=== PATIENT | female | born 1970 | race Caucasian/White ===

== ENCOUNTER → 2021-04-05 15:26 | Outpatient (CLI) | payer OTHER, SELFPAY ==
--- NOTE | ~2021-04-05 | MM_ITS ---
EXAMINATION: MM screening [place] BI w evie HISTORY: Screening mammogram TECHNIQUE: Craniocaudal and mediolateral oblique 3-D tomosynthesis images were obtained and synthetic 2-D images were generated. CAD analysis was submitted and interpreted. COMPARISON: No prior mammogram is available for comparison at this institution. BREAST PARENCHYMAL COMPOSITION: The breasts are almost entirely fatty. FINDINGS: RIGHT BREAST: There is no evidence of suspicious mass, calcification, or architectural distortion to suggest malignancy. LEFT BREAST: A mass is present in the anterior third of the upper outer quadrant breast 4.5 cm from t he nipple. IMPRESSION: 1. Left breast mass which may represent the patient's baseline however no comparison is currently esha ilable. 2. Comparison with prior mammograms is necessary. BI-RADS Category 0: Incomplete: Needs comparison with prior mammograms. Reviewed, dictated and finalized at location A. IMPRESSION: 1. Left breast mass which may represent the patient's baseline however no isaac rison is currently available. 2. Comparison with prior mammograms is necessary. BI-RADS Category 0: Incomplete: Needs comparison with prior mammograms.
== END ==
PROVIDERS: PCP Emergency Medicine; Visit Provider Emergency Medicine
DX: Z12.31 Encounter for screening mammogram for malignant neoplasm of breast (principal); R92.8 Other abnormal and inconclusive findings on diagnostic imaging of breast
CPT/HCPCS: 77063; 77067

== ENCOUNTER 2021-10-05 00:07 | Day surgery (SDC) | payer OTHER, SELFPAY ==
[2021-09-23 15:18] VITALS: BMI 24.2
[2021-10-05 07:48] VITALS: BP 143/92; PULSE 84; RESP 18; TEMP 36.5; O2SAT 100
[2021-10-05] MEDS: LACTATED RINGERS 1,000 ML 150 ML IV CONT (08:02)
--- NOTE | 2021-10-05 08:21 | WPDANESEPPF ---
Anes - Initial Pre Proc Eval Procedure: Operation Date: 10/05/21 09:00 Proposed Procedures p Esophagogastroduodenoscopy & Screening Colonoscopy - Orlando Walker MD Date/Time: 10/05/21 08:21 Surgeon: Orlando Walker MD Pre Op Diagnosis: abdominal pain, gastritis, neoplasm screening Patient Data Age: 51 Gender: F Height: 1.68 m Weight: 68.2 kg Last Vital Signs Temp 97.7 F 10/05/21 07:48 Pulse 84 10/05/21 07:48 Resp 18 10/05/21 07:48 BP 143/92 H 10/05/21 07:48 Pulse Ox 100 10/05/21 07:48 Allergies Allergy/AdvReac Type Severity Reaction Status Date / Time corn Allergy Gastrointestinal Verified 10/05/21 07:51 Upset egg Allergy Gastrointestinal Verified 10/05/21 07:51 Upset wheat Allergy Gastrointestinal Verified 10/05/21 07:51 Upset Home Medications Medication Instructions Recorded Confirmed Type ascorbic acid (vitamin C) 500 mg PO DAILY 09/23/21 09/23/21 History cholecalciferol (vitamin D3) 50 mcg PO DAILY 09/23/21 09/23/21 History [Vitamin D3] ezetimibe 10 mg PO DAILY 09/23/21 09/23/21 History levothyroxine [Synthroid] 88 mcg PO DAILY 09/23/21 09/23/21 History omeprazole 20 mg PO DAILY 09/23/21 09/23/21 History Patient hx anesthesia problems: none Family hx anesthesia problems: none Results Review: All pre-operative results and documents have been reviewed as part of the pre-operative evaluation. [facility]LY [facility] Past Medical History Medical History (Updated 10/05/21 @ 08:20 by Richi Drake MD) H/O: CVA (cerebrovascular accident) Hyperlipidemia Social History Social History Smoking status: Never smoker Alcohol intake: current Drinks per week: 2 Substance use: never Substance use type: does not use Living arrangements: with family Spiritual care concerns: No Anes - Eval Final PreProcedure Day of Procedure 10/05/21 08:21 Patient weight: normal Heart: regular rate and rhythm Lungs: clear to auscultation Airway: Mallampati scale class II Neurological: alert and oriented Last oral intake: >/= 8 hours ASA classification: III Emergent: no Anesthetic plan: proceed Anesthesia type and monitoring: general GIVS and standard monitoring Results Review: All pre-operative results and documents have been reviewed as part of the pre-operative evaluation. Informed Consent: The patient's anesthetic plan and its attendant risks and benefits were discussed with the patient/family/POA. Questions were solicited and answers provided to the satisfaction of the patient/family/POA.
--- NOTE | 2021-10-05 08:47 | PM.HPGS ---
History of Present Illness History of Present Illness Consent: Risks, benefits, and alternatives have been discussed and questions answered. Patient agrees to proceed with procedure. Chief complaint: abdominal pain, gastritis, neoplasm screening Narrative: Sita Borjas is a 51 year old female with abdominal pain and gerd- better with omeprazole, blood work with mild abnormal parietal cell ab and also allergies to certain meals. She is post cholecystectomy and history of diarrhea but does not have to take any medications. Last colonoscopy 2015. Review of Systems Constitutional: Constitutional: Denies headache(s) and Denies weakness Eyes: Eyes: Denies blurry vision ENT: Reports Normal hearing present, Denies headache(s) and Denies neck pain Cardiovascular: Cardiovascular: Denies chest pain and Denies dyspnea Respiratory: Respiratory: Denies dyspnea Gastrointestinal: Gastrointestinal: Reports no additional gastrointestinal complaints Genitourinary: Genitourinary: Denies dysuria Musculoskeletal: Musculoskeletal: Denies neck pain Integumentary/Breasts: Skin/Breast: Denies dry skin Neurologic: Reports Normal hearing present, Denies headache(s) and Denies weakness Psychiatric: Psychiatric: Denies anxiety Endocrine: Endocrine: Denies change in body appearance Hematologic/Lymphatic: Hematologic/Lymphatic: Denies easy bleeding Allergic/Immunologic: Allergic/Immunologic: Denies urticaria PMFSH Past Medical History Medical History (Updated 10/05/21 @ 08:49 by Orlando Walker MD) Abdominal pain Colon cancer screening GERD (gastroesophageal reflux disease) Hyperlipidemia Social History Social History Smoking status: Never smoker Alcohol intake: current Drinks per week: 2 Substance use: never Substance use type: does not use Living arrangements: with family Spiritual care concerns: No Meds Home Medications and Allergies Home Medications Medication Instructions Recorded Confirmed Type ascorbic acid (vitamin C) 500 mg PO DAILY 09/23/21 09/23/21 History cholecalciferol (vitamin D3) 50 mcg PO DAILY 09/23/21 09/23/21 History [Vitamin D3] ezetimibe 10 mg PO DAILY 09/23/21 09/23/21 History levothyroxine [Synthroid] 88 mcg PO DAILY 09/23/21 09/23/21 History omeprazole 20 mg PO DAILY 09/23/21 09/23/21 History Allergies Allergy/AdvReac Type Severity Reaction Status Date / Time corn Allergy Gastrointestinal Verified 10/05/21 07:51 Upset egg Allergy Gastrointestinal Verified 10/05/21 07:51 Upset wheat Allergy Gastrointestinal Verified 10/05/21 07:51 Upset Vital Signs Vital Signs - 24 hr 10/05/21 07:48 Temperature 97.7 F Pulse Rate 84 Respiratory Rate 18 Blood Pressure 143/92 H Pulse Oximetry 100 Exam Const: General: comfortable and no acute distress HENMT: General nose exam: Normal nares present Eyes: General: appearance normal, both eyes and all related structures Neck: Neck: no JVD Resp: Auscultation: clear to auscultation bilaterally Cardio: Rate: regular rate Rhythm: regular rhythm GI: Inspection: non-distended GI Palp: Yes Soft to palpation Skin: General skin exam: normal color Neuro: General: gait normal Speech: normal speech Extrem: General: normal to inspection Psych: Mental Status: mental status grossly normal Assessment and Plan Assessment and plan (1) Abdominal pain: Code(s): R10.9 - Unspecified abdominal pain Status: Acute Assessment and Plan: egd with bx (check if atrophic gastritis given abnormal parietal cell ab), also check for celiac disease (2) GERD (gastroesophageal reflux disease): Code(s): K21.9 - Gastro-esophageal reflux disease without esophagitis Status: Acute Assessment and Plan: better with PPI (3) Colon cancer screening: Code(s): Z12.11 - Encounter for screening for malignant neoplasm of colon Status: Acute Assessment and Plan:
[2021-10-05 09:29] VITALS: BP 129/84; PULSE 79; RESP 22; O2SAT 100
[2021-10-05 09:39] VITALS: BP 123/80; PULSE 81; RESP 25; O2SAT 100
--- NOTE | 2021-10-05 09:42 | SUR.OPER ---
EGD start 857 End 903, Colon start 909 end 922
[2021-10-05 09:49] VITALS: BP 143/100; PULSE 66; RESP 22; O2SAT 100
== END 2021-10-05 10:42 | disposition home or self-care (01) ==
PROVIDERS: PCP Emergency Medicine; Visit Provider Internal Medicine Gastroenterology
PROC: 0DJ08ZZ Inspection of Upper Intestinal Tract, Via Natural or Artificial Opening Endoscopic (ICD-10-PCS; CPT 43235; principal; 2021-10-05 09:00)
DX: Z12.11 Encounter for screening for malignant neoplasm of colon (principal); D12.3 Benign neoplasm of transverse colon; K57.30 Diverticulosis of large intestine without perforation or abscess without bleeding; K64.8 Other hemorrhoids; K52.9 Noninfective gastroenteritis and colitis, unspecified; K29.50 Unspecified chronic gastritis without bleeding; K31.7 Polyp of stomach and duodenum; K21.9 Gastro-esophageal reflux disease without esophagitis; E78.5 Hyperlipidemia, unspecified; Z86.73 Personal history of transient ischemic attack (TIA), and cerebral infarction without residual deficits
CPT/HCPCS: 43239; 45385; 45380; 88305; 88342; J1200; J2250; J2704; J7120

== ENCOUNTER 2022-02-14 15:15 | Emergency (ER) | payer OTHER, SELFPAY ==
--- NOTE | ~2022-02-14 | XR_ITS ---
XR finger 1st RT min 2V 02/14/2022 15:55 INDICATION: Right first finger pain PROCEDURE: 3 views right first finger COMPARISON: No prior studies for comparison. FINDINGS: Fracture, dislocation or subluxation is not identified. The soft tissues appear within norm al limits. No foreign bodies are identified. IMPRESSION: 1: NO ACUTE BONE OR JOINT ABNORMALITY IDENTIFIED. Reviewed, dictated and finalized at location A.
--- NOTE | ~2022-02-14 | XR_ITS ---
EXAM: XR foot LT min 3V DATE: 02/14/2022 15:55 HISTORY: falling brick on foot . COMPARISON: None available. FINDINGS: Normal mineralization. No fracture or dislocation. No lytic or blastic lesion. Achilles an d plantar enthesopathy. Mild degenerative change at the first MTP. No erosion or periosteal change. F orefoot soft tissue swelling. IMPRESSION: No acute osseous finding in the left foot. Reviewed, dictated and finalized at location K.
--- NOTE | ~2022-02-14 | US_ITS ---
EXAMINATION: US venous doppler [facility] DATE: 02/14/2022 16:21 INDICATION: Left lower limb swelling TECHNIQUE: Singh scale images without and with compression and Doppler images of the left lower extrem ity veins were obtained. COMPARISON: None FINDINGS: The left common femoral vein, profunda femoral vein, femoral vein, popliteal vein, peroneal trunk, posterior tibial veins, and greater saphenous vein are patent. No focal sonographic abnormali ty is seen in the area of swelling. IMPRESSION: 1. Patent left lower extremity veins. No evidence of deep venous thrombosis. Reviewed, dictated and finalized at location B.
[2022-02-14 15:27] VITALS: BP 142/104; PULSE 85; RESP 20; TEMP 36.9; O2SAT 98
--- NOTE | 2022-02-14 16:37 | ED.LOWEXIN ---
HPI - Extremity Injury (Lower) General Chief Complaint: Extremity Injury, Lower Stated Complaint: left foot pain - i dropped something on my foot Time Seen by Provider: 02/14/22 15:38 History of Present Illness HPI Narrative: 51-year-old female presenting with pain in her left foot after she accidentally dropped something on it, denies any numbness or tingling or weakness, she also noticed her right thumb being stuck in the same position which has happened before with overuse. She also thinks that she has increased welling in her left foot and she has had clots in the past so wanted to make sure there were no clots today. Related Data Home Medications Medication Instructions Recorded Confirmed ascorbic acid (vitamin C) 500 mg 500 mg PO DAILY 09/23/21 09/23/21 tablet cholecalciferol (vitamin D3) 50 50 mcg PO DAILY 09/23/21 09/23/21 mcg (2,000 unit) capsule (Vitamin D3) ezetimibe 10 mg tablet 10 mg PO DAILY 09/23/21 09/23/21 levothyroxine 88 mcg tablet 88 mcg PO DAILY 09/23/21 09/23/21 (Synthroid) omeprazole 20 mg capsule,delayed 20 mg PO DAILY 09/23/21 09/23/21 release Allergies Allergy/AdvReac Type Severity Reaction Status Date / Time corn Allergy Gastrointestinal Verified 10/05/21 07:51 Upset egg Allergy Gastrointestinal Verified 10/05/21 07:51 Upset wheat Allergy Gastrointestinal Verified 10/05/21 07:51 Upset Review of Systems Review of Systems: CONST: No fever. HEENT: No sore throat C/V: No chest pain RESP: No cough GI: No nausea or vomiting : No dysuria. M/S: Left foot pain, right thumb stuck SKIN: Abrasion left foot NEURO: [No headache or focal numbness or weakness] PSYCH: [No depression] FOR[facility], [facility] Past Medical History Medical History Abdominal pain Colon cancer screening GERD (gastroesophageal reflux disease) Hyperlipidemia Social History Social History Smoking status: Never smoker Alcohol intake: current Drinks per week: 2 Substance use: never Substance use type: does not use Spiritual care concerns: No Exam Narrative: EXAMINATION OF ORGAN SYSTEMS/BODY AREAS: Constitutional: Vital signs per nursing GENERAL:[No acute distress, non-toxic appearing.] HEAD: Normal with no signs of head trauma. EYES: EOMI, conjunctiva normal ENT: Hearing grossly intact LUNGS: Nonlabored breathing. HEART: [Regular rate and rhythm] ABD: [Soft], nondistended EXT: Normal range of motion, right thumb in extension with clicking as it is passively flexed, no pain or swelling, there is swelling and abrasion to the left midfoot SKIN: Abrasion to foot NEURO: [Alert and oriented x 3. No gross focal sensory or strength deficits.] PSYCH: Normal affect Course Vital Signs Vital signs: Vital Signs Temperature 98.4 F 02/14/22 15:27 Pulse Rate 85 02/14/22 15:27 Respiratory Rate 20 02/14/22 15:27 Blood Pressure 142/104 H 02/14/22 15:27 Pulse Oximetry 98 02/14/22 15:27 Oxygen Delivery Room Air 02/14/22 15:27 Temperature 98.4 F 02/14/22 15:27 Pulse Rate 85 02/14/22 15:27 Respiratory Rate 20 02/14/22 15:27 Blood Pressure 142/104 H 02/14/22 15:27 Pulse Oximetry 98 02/14/22 15:27 Oxygen Delivery Room Air 02/14/22 15:27 MDM - Extremity Injury (Lower) MDM Narrative Medical decision making narrative: 51-year-old female presenting with left foot swelling and trauma and right thumb stuck in extension, vital signs stable, exam shows left foot abrasion and swelling with full range of motion, neurovascularly intact, x-ray of the foot and finger did not show any acute fracture, and DVT ultrasound of her left leg is negative for DVT. Patient is reassured, I have urged her to follow-up with surgery for further evaluation and treatment. She is asked to follow-up with her primary care doctor also for any further issues and or return here [facility]
== END 2022-02-14 16:56 | disposition home or self-care (01) ==
PROVIDERS: Emergency Provider Emergency Medicine; PCP Family Medicine
DX: S97.82XA Crushing injury of left foot, initial encounter (principal); M65.311 Trigger thumb, right thumb; R60.0 Localized edema; K21.9 Gastro-esophageal reflux disease without esophagitis; E78.5 Hyperlipidemia, unspecified; W20.8XXA Other cause of strike by thrown, projected or falling object, initial encounter
CPT/HCPCS: 73140; 73630; 93971; 99284

== ENCOUNTER 2022-03-14 05:26 | Emergency (ER) | payer OTHER, SELFPAY ==
[2022-03-14] VITALS (19 sets, daily range): BP systolic 116–141; BP diastolic 79–98; PULSE 68–77; RESP 14–18; TEMP 36.7–36.9; O2SAT 73–100
--- NOTE | ~2022-03-14 | XR_ITS ---
XR chest 1V portable INDICATION: Cough. TECHNIQUE: 2 view chest. FINDINGS: No prior studies for comparison. There is mild bilateral interstitial prominence and peribronchial cuffing. There is no focal consoli dation, pleural effusion, or pneumothorax. The cardiomediastinal silhouette is normal. IMPRESSION: 1. Findings most consistent with bronchiolitis versus an atypical or viral pneumonia. Reviewed, dictated and finalized at location A. IMPRESSION: 1. Findings most consistent with bronchiolitis versus an atypical or viral pne [facility].
--- NOTE | 2022-03-14 07:32 | ED.GENADULT ---
HPI - General Adult General Chief complaint: Unspecified Stated complaint: sore throat, I feel run down Time Seen by Provider: 03/14/22 07:26 Source: patient Mode of arrival: ambulatory Limitations: no limitations History of Present Illness HPI narrative: 51 years old white female presents with sore throat for the last 4 days. Also feeling tired. She denies COVID exposure. Or any respiratory symptoms. Related Data Home Medications Medication Instructions Recorded Confirmed ascorbic acid (vitamin C) 500 mg 500 mg PO DAILY 09/23/21 09/23/21 tablet cholecalciferol (vitamin D3) 50 50 mcg PO DAILY 09/23/21 09/23/21 mcg (2,000 unit) capsule (Vitamin D3) ezetimibe 10 mg tablet 10 mg PO DAILY 09/23/21 09/23/21 levothyroxine 88 mcg tablet 88 mcg PO DAILY 09/23/21 09/23/21 (Synthroid) omeprazole 20 mg capsule,delayed 20 mg PO DAILY 09/23/21 09/23/21 release chlorthalidone 25 mg tablet mg 03/14/22 Allergies Allergy/AdvReac Type Severity Reaction Status Date / Time corn Allergy Gastrointestinal Verified 03/14/22 05:33 Upset egg Allergy Gastrointestinal Verified 03/14/22 05:33 Upset wheat Allergy Gastrointestinal Verified 03/14/22 05:33 Upset Review of Systems Review of Systems: All systems reviewed & are unremarkable except as noted in HPI and below PMFSH Past Medical History Medical History Abdominal pain Colon cancer screening GERD (gastroesophageal reflux disease) Hyperlipidemia Social History Social History Smoking status: Never smoker Alcohol intake: current Drinks per week: 2 Substance use: never Substance use type: does not use Spiritual care concerns: No Exam Narrative: General appearance: Well-developed, well-nourished Skin: Normal color Head: Normocephalic, nontraumatic Eyes: Clear conjunctiva ENT: Oropharynx normal, ears normal, nose normal Neck: Supple, nontender Chest and respiratory: Airway patent, no respiratory distress, no accessory muscle use Heart: Regular rate/rhythm Vascular: Normal peripheral pulses, normal capillary refill. 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, no gross motor deficit Course Vital Signs Vital signs: Vital Signs Temperature 36.9 C 03/14/22 05:28 Pulse Rate 77 03/14/22 05:28 Respiratory Rate 18 03/14/22 05:28 Blood Pressure 130/85 03/14/22 05:28 Pulse Oximetry 99 03/14/22 05:28 Oxygen Delivery Room Air 03/14/22 05:28 Temperature 36.7 C 03/14/22 07:37 Pulse Rate 68 03/14/22 07:37 Respiratory Rate 14 03/14/22 07:37 Blood Pressure 122/90 03/14/22 08:31 Pulse Oximetry 99 03/14/22 09:00 Oxygen Delivery Room Air 03/14/22 05:28 Medical Decision Making Vital Signs Vital Signs: Vital Signs Temperature 36.9 C 03/14/22 05:28 Pulse Rate 77 03/14/22 05:28 Respiratory Rate 18 03/14/22 05:28 Blood Pressure 130/85 03/14/22 05:28 Pulse Oximetry 99 03/14/22 05:28 Oxygen Delivery Room Air 03/14/22 05:28 Temperature 36.7 C 03/14/22 07:37 Pulse Rate 68 03/14/22 07:37 Respiratory Rate 14 03/14/22 07:37 Blood Pressure 122/90 03/14/22 08:31 Pulse Oximetry 99 03/14/22 09:00 Oxygen Delivery Room Air 03/14/22 05:28 Lab Data Result diagrams: 03/14/22 07:40 03/14/22 07:40 Labs: Lab Results 03/14/22 03/14/22 03/14/22 Range/Units 07:40 07:40 07:40 WBC 7.8 (4.5-10.0) K/mm3 RBC 4.58 (4.2-5.4) M/mm3 Hgb 14.5 (12.0-15.0) g/dL Hc
[2022-03-14 08:22] LABS: Basophils Percent Auto 0.5 % (0.2-1.2); Eosinophils Absolute Auto 0.1 K/mm3 (0-0.3); Eosinophils Percent Auto 1.8 % (0-4.4); Hematocrit 43.3 % (37.0-47.0); Hemoglobin 14.5 g/dL (12.0-15.0); Immature Granulocyte Absolute 0.02 K/mm3 (0.00-0.031); Immature Granulocyte Percent A 0.3 % (0-0.5); Lymphocytes Absolute Auto 1.92 K/mm3 (0.9-3.2); Lymphocytes Percent Auto 24.8 % (18.3-44.2); Mean Corpuscular HGB Conc 33.5 g/dl (32-36); Mean Corpuscular Hemoglobin 31.7 pg (26-34); Mean Corpuscular Volume 94.5 fl (80-100); Mean Platelet Volume 9.4 fl (7.4-10.4); Monocytes Absolute Auto 1.2 K/mm3 (0.1-0.6); Neutrophils Absolute Auto 4.5 K/mm3 (1.3-6.7); Neutrophils Percent Auto 57.6 % (45.5-73.1); Platelet Count Result 250 k/mm3 (150-375); Red Blood Count 4.58 M/mm3 (4.2-5.4); Red Cell Distribution Width 17.2 % (11.5-14.5); White Blood Count 7.8 K/mm3 (4.5-10.0)
[2022-03-14 08:32] LABS: Alanine Aminotransferase 37 U/L (6-35); Albumin Level 4.6 g/dL (3.5-5.1); Alkaline Phosphatase 80 U/L (38-126); Anion Gap 9 mmol/L (8-16); Aspartate Amino Transferase 43 U/L (14-36); Bilirubin,Total 1.1 mg/dL (0.2-1.3); Blood Urea Nitrogen 12 mg/dL (7-17); Calcium 9.2 mg/dL (8.4-10.2); Carbon Dioxide 33 mmol/L (22-30); Chloride 95 mmol/L (98-107); Estimated CRCL calculation 75 ml/min; Estimated Glomerular Filt Rate > 60; Glucose 100 mg/dL (65-110); Potassium 3.6 mmol/L (3.4-5.0); Sodium 137 mmol/L (137-145)
[2022-03-14 08:38] LABS: SARS-CoV-2 RNA PCR Negative
== END 2022-03-14 09:55 | disposition home or self-care (01) ==
PROVIDERS: Emergency Provider Emergency Medicine; PCP Family Medicine
DX: J02.9 Acute pharyngitis, unspecified (principal); Z20.822 Contact with and (suspected) exposure to COVID-19; E78.5 Hyperlipidemia, unspecified; K21.9 Gastro-esophageal reflux disease without esophagitis; R91.8 Other nonspecific abnormal finding of lung field
CPT/HCPCS: 71045; 80053; 85025; 87081; 87880; 99283; C9803; U0003; U0005

== ENCOUNTER → 2022-04-24 10:45 | Outpatient (CLI) | payer OTHER, SELFPAY ==
--- NOTE | ~2022-04-24 | MM_ITS ---
EXAMINATION: MM screening [place] BI w evie HISTORY: Screening mammogram TECHNIQUE: Craniocaudal and mediolateral oblique 3-D tomosynthesis images were obtained and synthetic 2-D images were generated. CAD analysis was submitted and interpreted. COMPARISON: 04/01/2021, 11/11/2018, 11/05/2017 bilateral screening mammogram examinations BREAST PARENCHYMAL COMPOSITION: There are scattered areas of fibroglandular density. FINDINGS: Stable approximately 5 mm opacity in the anterior upper outer left breast since 11/05/2017. There is no evidence of suspicious mass, calcification, or architectural distortion to suggest malign frederick in either breast. There has been no suspicious interval change. IMPRESSION: 1. No mammographic evidence of malignancy. 2. Recommend routine screening mammography in one year. BI-RADS Category 2: Benign finding(s). Reviewed, dictated and finalized at location A.
== END ==
PROVIDERS: PCP Family Medicine; Visit Provider Family Medicine
DX: Z12.31 Encounter for screening mammogram for malignant neoplasm of breast (principal)
CPT/HCPCS: 77063; 77067

== ENCOUNTER → 2022-06-02 13:47 | Outpatient (CLI) | payer OTHER, SELFPAY ==
--- NOTE | ~2022-06-02 | US_ITS ---
US renal BI 06/02/2022 14:20 Procedure: Realtime transabdominal ultrasound of the kidneys and bladder. Indication: Renal cyst. Hypertension. Comparison: No prior studies for comparison. Findings: Renal echotexture is normal bilaterally without hydronephrosis, contour deforming mass or r enal calculus. There is a left renal cyst measuring 12 mm. The right kidney measures 10.1 cm cm and l eft kidney measures 10.7 cm cm. Bladder within normal limits. Impression: 1: Left renal cyst measuring 12 mm. Reviewed, dictated and finalized at location A. Impression: 1: Left renal cyst measuring 12 mm.
== END ==
PROVIDERS: PCP Family Medicine; Visit Provider Family Medicine
DX: I10 Essential (primary) hypertension (principal); N28.1 Cyst of kidney, acquired
CPT/HCPCS: 76775

== ENCOUNTER → 2023-07-23 12:20 | Outpatient (CLI) | payer OTHER, SELFPAY ==
--- NOTE | ~2023-07-23 | MM_ITS ---
EXAMINATION: MM screening [place] BI w evie HISTORY: Screening TECHNIQUE: Craniocaudal and mediolateral oblique 3-D tomosynthesis images were obtained and synthetic 2-D images were generated. CAD analysis was submitted and interpreted. COMPARISON: Comparison to multiple prior studies sequentially, with oldest reviewed study dated 09/2013. BREAST PARENCHYMAL COMPOSITION: Breast composed of scattered areas of fibroglandular density FINDINGS: There is no evidence of suspicious mass, calcification, or architectural distortion to sugg est malignancy in either breast. There has been no suspicious interval change. IMPRESSION: 1. No mammographic evidence of malignancy. 2. Recommend routine screening mammography in one year. BI-RADS Category 1: Negative Reviewed, dictated and finalized at location A. GER [facility]
== END ==
PROVIDERS: PCP Family Medicine; Visit Provider Family Medicine
DX: Z12.31 Encounter for screening mammogram for malignant neoplasm of breast (principal)
CPT/HCPCS: 77063; 77067

== ENCOUNTER 2023-10-09 07:24 | Outpatient (CLI) | payer OTHER, SELFPAY ==
--- NOTE | ~2023-10-09 | US_ITS ---
EXAMINATION: US pelvic complete w TV DATE: 10/09/2023 09:04 INDICATION: Pelvic pain TECHNIQUE: Multiple transabdominal and endovaginal sonographic images of the pelvis were obtained. COMPARISON: None. FINDINGS: The uterus measures 6.5 x 2.9 x 4.0 cm. The endometrial complex measures approximately 4 mm . The right ovary measures 2.4 x 1.1 x 1.3 cm. The left ovary measures 3.4 x 1.5 x 1.8 cm. There is n ormal vascular flow in the ovaries. There is a small amount of free fluid in the pelvis. IMPRESSION: 1. No sonographic correlate for the patient's symptoms. Reviewed, dictated and finalized at location L. TER SAXOPHONES
--- NOTE | ~2023-10-09 | US_ITS ---
EXAMINATION: US venous doppler [facility] DATE: 10/09/2023 09:04 INDICATION: Left lower limb pain TECHNIQUE: Snigh scale images without and with compression and Doppler images of the left lower extrem ity veins were obtained. COMPARISON: 02/14/2022 FINDINGS: The left common femoral vein, profunda femoral vein, femoral vein, popliteal vein, peroneal trunk, posterior tibial veins, and greater saphenous vein are patent. IMPRESSION: 1. Patent left lower extremity veins. No evidence of deep venous thrombosis. Reviewed, dictated and finalized at location L. 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
--- NOTE | ~2023-10-09 | US_ITS ---
EXAMINATION: US renal BI DATE: 10/09/2023 09:04 INDICATION: History of renal cysts TECHNIQUE: Multiple grayscale and Doppler ultrasound images of the kidneys were obtained. COMPARISON: 05/13/2022 FINDINGS: The right kidney measures 9.9 x 4.5 x 5.4 cm. The left kidney measures 10.5 x 4.8 x 5.9 cm. The previously described left kidney cyst is not well demonstrated. The kidneys demonstrate normal p arenchymal echogenicity. There is no hydronephrosis. The bladder is normal. IMPRESSION: 1. Normal kidneys without hydronephrosis. Reviewed, dictated and finalized at location L. 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
== END 2023-10-09 07:25 | disposition home or self-care (01) ==
PROVIDERS: PCP Registered Nurse; Visit Provider Obstetrics & Gynecology
DX: N28.1 Cyst of kidney, acquired (principal); I83.812 Varicose veins of left lower extremity with pain
CPT/HCPCS: 76775; 76830; 76856; 93971

== ENCOUNTER 2023-11-09 08:22 | Emergency (ER) | payer OTHER, SELFPAY ==
[2023-11-09] VITALS (10 sets, daily range): BP systolic 118–141; BP diastolic 68–94; PULSE 61–74; RESP 16; TEMP 36.5–36.7; O2SAT 98–100
--- NOTE | ~2023-11-09 | CT_ITS ---
EXAMINATION: CT brain wo con DATE: 11/09/2023 12:10 INDICATION: Dizziness. TECHNIQUE: Computed tomography (CT) of the head was performed without intravenous contrast. The mA wa s adjusted according to patient size. Iterative reconstruction technique was employed. The dose-lengt h product was 681.00 mGy-cm. COMPARISON: None FINDINGS: There is no intracranial hemorrhage, acute infarction, or abnormal intracranial mass lesion . The ventricles are normal in size. The orbits are normal. The paranasal sinuses are clear. The mast oid air cells are normal. IMPRESSION: 1. Normal brain. Reviewed, dictated and finalized at location A. IMPRESSION: 1. Normal brain.
--- NOTE | ~2023-11-09 | CT_ITS ---
EXAMINATION: CT abdomen pelvis w con DATE: 11/09/2023 12:10 INDICATION: Right abdominal pain. TECHNIQUE: Computed tomography (CT) of the abdomen and pelvis was performed with 100 mL Omnipaque 350 intravenous contrast. Automated exposure control and iterative reconstruction technique were employe d. The dose-length product was 543.61 mGy-cm. COMPARISON: None. FINDINGS: The visualized portions of the lung bases demonstrate mild atelectasis. No pleural effusion . The heart size is normal. No pericardial effusion. The liver is normal. There are changes of cholec ystectomy. The spleen, pancreas, adrenal glands, and kidneys are normal. There are no dilated loops o f bowel. The appendix is not visualized. There is physiologic fluid in the pelvis. There are no patho logically enlarged lymph nodes. There is calcified atherosclerosis of the aorta and many of the other arteries. There is severe lumbar spondylosis. There is a chronic compression fracture of L4. IMPRESSION: 1. No etiology for the patient's symptoms. Reviewed, dictated and finalized at location A.
--- NOTE | ~2023-11-09 | XR_ITS ---
EXAMINATION: XR chest 2V DATE: 11/09/2023 12:20 INDICATION: Dizziness TECHNIQUE: PA and lateral views of the chest are obtained. COMPARISON: 03/14/2022 FINDINGS: The lungs are free of acute opacities. No pleural effusion or pneumothorax. The heart size is normal. There is a hiatal hernia. There is moderate thoracic spondylosis. IMPRESSION: 1. No acute cardiopulmonary abnormality. Reviewed, dictated and finalized at location A.
[2023-11-09 09:39] LABS: Basophils Percent Auto 0.6 % (0.2-1.2); Eosinophils Absolute Auto 0.2 K/mm3 (0-0.3); Eosinophils Percent Auto 2.9 % (0-4.4); Hematocrit 43.7 % (37.0-47.0); Immature Granulocyte Absolute 0.02 K/mm3 (0.00-0.031); Immature Granulocyte Percent A 0.3 % (0-0.5); Lymphocytes Absolute Auto 1.95 K/mm3 (0.9-3.2); Lymphocytes Percent Auto 31.4 % (18.3-44.2); Mean Corpuscular HGB Conc 34.3 g/dl (32-36); Mean Corpuscular Hemoglobin 31.9 pg (26-34); Mean Platelet Volume 9.2 fl (7.4-10.4); Monocytes Absolute Auto 0.5 K/mm3 (0.1-0.6); Monocytes Percent Auto 8.1 % (2.6-8.5); Neutrophils Absolute Auto 3.5 K/mm3 (1.3-6.7); Neutrophils Percent Auto 56.7 % (45.5-73.1); Nucleated Red Blood Cells Perc 0.3 % (0.0-0.2); Platelet Count Result 283 k/mm3 (150-375); Red Cell Distribution Width 17.5 % (11.5-14.5); White Blood Count 6.2 K/mm3 (4.5-10.0)
[2023-11-09 09:41] LABS: Alanine Aminotransferase 37 U/L (6-35); Albumin Level 4.6 g/dL (3.5-5.1); Alkaline Phosphatase 62 U/L (38-126); Anion Gap 6 mmol/L (4-12); Aspartate Amino Transferase 39 U/L (14-36); Bilirubin,Total 1.1 mg/dL (0.2-1.3); Blood Urea Nitrogen 11 mg/dL (7-17); Calcium 10.4 mg/dL (8.4-10.2); Carbon Dioxide 34 mmol/L (22-30); Chloride 98 mmol/L (98-107); Estimated CRCL calculation 73 ml/min; Estimated Glomerular Filt Rate > 60; Glucose 94 mg/dL (65-110); Lipase 201 U/L (23-300); Potassium 3.8 mmol/L (3.4-5.0); Sodium 138 mmol/L (137-145)
--- NOTE | 2023-11-09 09:43 | ECG_ITS ---
Measurements Intervals [place] Rate: 63 P: 64 CO: 164 QRS: 48 QRSD: 94 T: 28 QT: 402 QTc: 413 Interpretive Statements SINUS RHYTHM LOW QRS VOLTAGE IN PRECORDIAL LEADS NONSPECIFIC ST & T-WAVE ABNORMALITY- ANTEROLAT/INF LEADS BORDERLINE ECG NO PREVIOUS ECG AVAILABLE FOR COMPARISON Electronically Signed On 11-09-2023 11:14:33 CDT by Bonifacio Stack D.O.
[2023-11-09 09:45] LABS: Appearance Urine Clear (Clear); Bacteria Urine None Seen /hpf; Bilirubin Urine Negative (Negative); Blood Urine Negative (Negative); Color Urine Yellow (Yellow); Glucose Urine UA Negative (Negative); Ketones Urine Negative (Negative); Leukocyte Esterase Ur Trace LEU/UL (Negative); Nitrate Urine Negative (Negative); Non Pathogenic Casts 0-2; Protein Urine Negative (Negative); RBC Urine 0-2 /hpf (0-2); Specific Grav Ur 1.009 (1.001-1.035); Squamous Epithelial Cell Urine None Seen /hpf (Few); Urobilinogen Urine 0.2 mg/dL (<2.0); WBC Urine 0-5 /hpf (0-3); pH Urine 6.5 (5.0-9.0)
[2023-11-09 09:46] LABS: Add Urine Microscopic? YES
--- NOTE | 2023-11-09 09:56 | ED.ABDPAIN ---
HPI - Abdominal Pain General Chief Complaint: Abdominal Pain Stated Complaint: right lower abdominal pain Time Seen by Provider: 11/09/23 09:43 Source: patient Mode of arrival: ambulatory Limitations: no limitations History of Present Illness HPI narrative: This is a 53 year old female that presents to the ER for abdominal pain. Ongoing over the last couple of months. Reports the pain is in the right side of her abdomen. At first it was intermittent. Now it has become more constant. 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 She has an appointment with GI in a couple weeks. Reports she has been having associated dizziness, dark stools and constipation. Denies fever, nausea or vomiting. Related Data Home Medications Medication Instructions Recorded Confirmed ascorbic acid (vitamin C) 500 mg 500 mg PO DAILY 09/23/21 09/21/23 tablet cholecalciferol (vitamin D3) 50 50 mcg PO DAILY 09/23/21 09/21/23 mcg (2,000 unit) capsule (Vitamin D3) ezetimibe 10 mg tablet 10 mg PO DAILY 09/23/21 09/21/23 levothyroxine 88 mcg tablet 88 mcg PO DAILY 09/23/21 09/21/23 (Synthroid) cyclobenzaprine 10 mg tablet 10 mg PO TID PRN muscle spasm 04/09/23 09/21/23 Allergies Allergy/AdvReac Type Severity Reaction Status Date / Time corn Allergy Gastrointestinal Verified 11/09/23 08:29 Upset egg Allergy Gastrointestinal Verified 11/09/23 08:29 Upset wheat Allergy Gastrointestinal Verified 11/09/23 08:29 Upset Review of Systems Review of Systems: CONSTITUTIONAL: Denies fever GASTROINTESTINAL: Reports abdominal pain. Denies nausea, vomiting, or diarrhea. GENITOURINARY: Denies dysuria or hematuria. All systems reviewed & are unremarkable except as noted in HPI and below PMFSH Past Medical History Medical History Abdominal pain Abnormal Pap smear of cervix Arthritis Colon cancer screening Essential hypertension Gallbladder disorder GERD (gastroesophageal reflux disease) History of deep venous thrombosis or pulmonary embolus Hyperlipidemia Migraine Renal cyst Thyroid disease Trigger thumb, right thumb Surgical History Surgical History H/O colposcopy with cervical biopsy H/O vein stripping History of appendectomy 1972 History of cholecystectomy 2007 History of endometrial ablation Family History Family History Mother DVT (deep venous thrombosis) Thyroid disease Renal disease Hypertension Other Carcinoma of colon Kidney malignant neoplasm Social History Social History (Updated 09/21/23 @ 08:26 by Mansi Alarcon MA) Smoking status: Never smoker Second hand tobacco smoke exposure: No Alcohol intake: current Drinks per week: 2 Alcohol use details: soically Substance use: never Substance use type: does not use Do You Feel Safe in your Home?: Yes Lack of Transportation: No Lack of Food: Never True Current Housing: Decline to Answer Concerned About Future Housing: Decline to Answer Difficulty Paying Gas/Electric Bills: Decline to Answer Difficulty Paying for Meds: Decline to Answer Currently Unemployed: Decline to Answer Education: Decline to Answer Difficulty w/ Childcare or Family Care: Decline to Answer Living arrangements: with family 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 HEAD: Normocephalic, atraumatic. EYES: PERRLA and EOMI. ENT: Nares clear, no rhinorrhea or epistaxis. Mucous membranes moist. Oropharynx without tonsillar hypertrophy e
[2023-11-09] MEDS: SODIUM CHLORIDE 0.9% IV 1,000 ML 999 ML IV CONT (10:13)
[2023-11-09 11:07] LABS: Thyroid Stimulating Hormone Reflex 0.817 uIU/mL (0.465-4.68)
== END 2023-11-09 14:21 | disposition home or self-care (01) ==
PROVIDERS: Emergency Medicine; Emergency Provider Physician Assistant; PCP Registered Nurse
DX: R10.31 Right lower quadrant pain (principal); E83.52 Hypercalcemia; R42 Dizziness and giddiness; I10 Essential (primary) hypertension; E78.5 Hyperlipidemia, unspecified; E07.9 Disorder of thyroid, unspecified; K21.9 Gastro-esophageal reflux disease without esophagitis; M19.90 Unspecified osteoarthritis, unspecified site; Z90.49 Acquired absence of other specified parts of digestive tract; R94.31 Abnormal electrocardiogram [ECG] [EKG]
CPT/HCPCS: 36415; 70450; 71046; 74177; 80053; 81001; 83690; 84443; 85025; 93005; 96360; 99284; J7030; Q9967

== ENCOUNTER 2023-12-13 01:14 | Day surgery (SDC) | payer OTHER, SELFPAY ==
[2023-12-11 14:45] VITALS: BMI 24.3
[2023-12-13 11:04] VITALS: BP 111/81; PULSE 68; RESP 18; TEMP 36.4; O2SAT 100
[2023-12-13] MEDS: LACTATED RINGERS 1,000 ML 150 ML IV CONT (11:17)
--- NOTE | 2023-12-13 11:25 | WPDANESEPPF ---
Anes - Initial Pre Proc Eval Procedure: Operation Date: 12/13/23 13:30 Proposed Procedures p Colonoscopy - Orlando Walker MD Date/Time: 12/13/23 11:25 Surgeon: Orlando Walker MD Pre Op Diagnosis: Abdominal Pain Patient Data Age: 53 Gender: F Height: 1.68 m Weight: 66.9 kg Last Vital Signs Temp 97.6 F 12/13/23 11:04 Pulse 68 12/13/23 11:04 Resp 18 12/13/23 11:04 BP 111/81 12/13/23 11:04 Pulse Ox 100 12/13/23 11:04 O2 Del Method Room Air 12/13/23 11:04 Allergies Allergy/AdvReac Type Severity Reaction Status Date / Time corn AdvReac Intermediate Gastrointestinal Verified 12/13/23 11:03 Upset egg AdvReac Intermediate Gastrointestinal Verified 12/13/23 11:03 Upset wheat AdvReac Intermediate Gastrointestinal Verified 12/13/23 11:03 Upset Home Medications Medication Instructions Recorded Confirmed Type ascorbic acid (vitamin C) 500 mg 500 mg PO DAILY 09/23/21 12/11/23 History tablet cholecalciferol (vitamin D3) 50 50 mcg PO DAILY 09/23/21 12/11/23 History mcg (2,000 unit) capsule (Vitamin D3) ezetimibe 10 mg tablet 10 mg PO DAILY 09/23/21 12/11/23 History levothyroxine 88 mcg tablet 88 mcg PO DAILY 09/23/21 12/11/23 History (Synthroid) eletriptan 20 mg tablet (Relpax) See Rx Instructions PO .COMPLEX 05/31/22 12/11/23 Rx #10 tabs clobetasol 0.05 % topical cream 1 applic topical 2XW #60 grams 04/09/23 12/11/23 Rx estradiol 0.01% (0.1 mg/gram) 1 g vaginal WEEKLY #42.5 grams 04/09/23 12/11/23 Rx vaginal cream omeprazole 20 mg capsule,delayed 20 mg PO DAILY #90 caps 08/01/23 12/11/23 Rx release Lactobacillus rhamnosus GG 10 1 cap PO DAILY 12/11/23 12/11/23 History billion cell-inulin 200 mg capsule ([facility]) psyllium husk 0.4 gram capsule 0.4 g PO DAILY 12/11/23 12/11/23 History (Metamucil) chlorthalidone 25 mg tablet 25 mg PO 12/13/23 History Patient hx anesthesia problems: none Family hx anesthesia problems: none Results Review: All pre-operative results and documents have been reviewed as part of the pre-operative evaluation. [facility] Past Medical History Medical History (Updated 12/06/23 @ 16:28 by KATIE Fry) Abdominal pain Abnormal Pap smear of cervix Arthritis Colon cancer screening Elevated liver enzymes Essential hypertension Gallbladder disorder GERD (gastroesophageal reflux disease) History of deep venous thrombosis or pulmonary embolus Hyperlipidemia Migraine Renal cyst Right sided abdominal pain Thyroid disease Trigger thumb, right thumb Surgical History Surgical History H/O colposcopy with cervical biopsy H/O vein stripping History of appendectomy 1973 History of cholecystectomy 2007 History of endometrial ablation Family History Family History Mother DVT (deep venous thrombosis) Thyroid disease Renal disease Hypertension Other Carcinoma of colon Kidney malignant neoplasm Social History Social History Smoking status: Never smoker Second hand tobacco smoke exposure: No Alcohol intake: current Drinks per week: 2 Alcohol use details: soically Substance use: never Substance use type: does not use Do You Feel Safe in your Home?: Yes Lack of Transportation: No Lack of Food: Never True Current Housing: Decline to Answer Concerned About Future Housing: Decline to Answer Difficulty Paying Gas/Electric Bills: Decline to Answer Difficulty Paying for Meds: Decline to Answer Currently Unemployed: Decline to Answer Education: Decline to Answer Difficulty w/ Childcare or Family Care: Decline to Answer Living arrangements: with family 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
--- NOTE | 2023-12-13 11:40 | WPDHPUPDATE1 ---
History and Physical Update Update Date/Time: 12/13/23 11:40 History and Physical has been reviewed, including an updated exam of the patient. There are NO changes in the patient's condition. Risks, benefits, and alternatives have been discussed and questions answered. Patient agrees to proceed with procedure.
[2023-12-13 11:56] VITALS: BP 88/62; PULSE 79; RESP 17; O2SAT 97
[2023-12-13 12:06] VITALS: BP 101/64; PULSE 78; RESP 14; O2SAT 100
[2023-12-13 12:16] VITALS: BP 109/69; PULSE 67; RESP 19; O2SAT 100
== END 2023-12-13 12:25 | disposition home or self-care (01) ==
PROVIDERS: PCP Registered Nurse; Visit Provider Internal Medicine Gastroenterology
PROC: 0DJD8ZZ Inspection of Lower Intestinal Tract, Via Natural or Artificial Opening Endoscopic (ICD-10-PCS; CPT 45378; principal; 2023-12-13 13:30)
DX: R10.31 Right lower quadrant pain (principal); K64.8 Other hemorrhoids; K57.30 Diverticulosis of large intestine without perforation or abscess without bleeding; I10 Essential (primary) hypertension; K82.9 Disease of gallbladder, unspecified; K21.9 Gastro-esophageal reflux disease without esophagitis; E78.5 Hyperlipidemia, unspecified; E07.9 Disorder of thyroid, unspecified; Z86.718 Personal history of other venous thrombosis and embolism; Z98.890 Other specified postprocedural states; Z90.49 Acquired absence of other specified parts of digestive tract; Z80.0 Family history of malignant neoplasm of digestive organs; Z80.51 Family history of malignant neoplasm of kidney
CPT/HCPCS: 45380; 88305; J2704; J7120

== ENCOUNTER 2023-12-14 09:44 | Emergency (ER) | payer OTHER, SELFPAY ==
--- NOTE | ~2023-12-14 | CT_ITS ---
EXAMINATION: CT abdomen pelvis w con DATE: 12/14/2023 11:34 INDICATION: Left lower quadrant pain after colonoscopy TECHNIQUE: Computed tomography (CT) of the abdomen and pelvis was performed with 100 cc Omnipaque 350 intravenous contrast. The dose-length product was 326.10 mGy-cm. Automated exposure control and iterative reconstruction technique were employed. COMPARISON: 11/09/2023. FINDINGS: There is dependent atelectasis. Heart size normal. Status post cholecystectomy with expecte d prominence of the bile ducts. The spleen, pancreas, adrenal glands and kidneys are unremarkable. No free air or free fluid. Nonobstructive bowel gas pattern. There is thickening of the colon from hepa tic flexure to the sigmoid colon, consistent with colitis. IMPRESSION: 1. Abnormal thickening of the colon, suspicious for colitis, most likely infectious or inflammatory. Reviewed, dictated and finalized at location B. IMPRESSION: 1. Abnormal thickening of the colon, suspicious for colitis, most likely infect ious or inflammatory.
[2023-12-14 09:48] VITALS: BP 128/82; PULSE 101; RESP 14; TEMP 37.7; O2SAT 97
[2023-12-14] MEDS: SODIUM CHLORIDE 0.9% IV 1,000 ML 999 ML IV CONT (10:35)
[2023-12-14] MEDS: MORPHINE SULFATE (*CRX) 4 MG/ML INJ IV PUSH (10:36)
[2023-12-14 10:38] LABS: Basophils Percent Auto 0.3 % (0.2-1.2); Eosinophils Percent Auto 0.3 % (0-4.4); Hematocrit 41.2 % (37.0-47.0); Hemoglobin 14.8 g/dL (12.0-15.0); Immature Granulocyte Absolute 0.07 K/mm3 (0.00-0.031); Immature Granulocyte Percent A 0.5 % (0-0.5); Lymphocytes Percent Auto 11.1 % (18.3-44.2); Mean Corpuscular HGB Conc 35.9 g/dl (32-36); Mean Corpuscular Hemoglobin 32.7 pg (26-34); Mean Corpuscular Volume 90.9 fl (80-100); Mean Platelet Volume 9.3 fl (7.4-10.4); Monocytes Percent Auto 6.8 % (2.6-8.5); Neutrophils Absolute Auto 11.7 K/mm3 (1.3-6.7); Nucleated Red Blood Cells Perc 0.1 % (0.0-0.2); Platelet Count Result 264 k/mm3 (150-375); Red Blood Count 4.53 M/mm3 (4.2-5.4); Red Cell Distribution Width 17.5 % (11.5-14.5); White Blood Count 14.5 K/mm3 (4.5-10.0)
[2023-12-14 10:45] LABS: Lactic Acid Reflex 1.6 mmol/L (0.7-2.0)
[2023-12-14 10:47] LABS: Alanine Aminotransferase 43 U/L (6-35); Albumin Level 4.6 g/dL (3.5-5.1); Alkaline Phosphatase 62 U/L (38-126); Anion Gap 11 mmol/L (4-12); Aspartate Amino Transferase 45 U/L (14-36); Bilirubin,Total 1.2 mg/dL (0.2-1.3); Blood Urea Nitrogen 15 mg/dL (7-17); Carbon Dioxide 22 mmol/L (22-30); Chloride 103 mmol/L (98-107); Estimated CRCL calculation 73 ml/min; Estimated Glomerular Filt Rate > 60; Glucose 118 mg/dL (65-110); Lipase 193 U/L (23-300); Sodium 136 mmol/L (137-145)
[2023-12-14 10:49] LABS: Appearance Urine Clear (Clear); Bacteria Urine None Seen /hpf; Bilirubin Urine Negative (Negative); Blood Urine Trace (Negative); Color Urine Yellow (Yellow); Glucose Urine UA Negative (Negative); Ketones Urine Negative (Negative); Leukocyte Esterase Ur 1+ LEU/UL (Negative); Need Manual Microscopic Reviewed; Nitrate Urine Negative (Negative); Protein Urine Negative (Negative); RBC Urine 0-2 /hpf (0-2); Specific Grav Ur 1.015 (1.001-1.035); Squamous Epithelial Cell Urine None Seen /hpf (Few); Urobilinogen Urine 0.2 mg/dL (<2.0); WBC Urine 0-5 /hpf (0-3)
[2023-12-14 10:50] LABS: Add Urine Microscopic? YES
[2023-12-14 11:00] VITALS: BP 132/80; PULSE 84; RESP 16; TEMP 36.4; O2SAT 100
[2023-12-14 12:00] VITALS: BP 130/76; PULSE 82; RESP 16; O2SAT 98
--- NOTE | 2023-12-14 12:08 | ED.ABDPAIN ---
HPI - Abdominal Pain General Chief Complaint: Abdominal Pain Stated Complaint: abd pain fever post op Time Seen by Provider: 12/14/23 09:52 History of Present Illness HPI narrative: The patient is a 53-year-old female who presents the ER with with reports of abdominal cramping and pain. She is having fevers. No diarrhea. No blood from the stool. Related Data Home Medications Medication Instructions Recorded Confirmed ascorbic acid (vitamin C) 500 mg 500 mg PO DAILY 09/23/21 12/11/23 tablet cholecalciferol (vitamin D3) 50 50 mcg PO DAILY 09/23/21 12/11/23 mcg (2,000 unit) capsule (Vitamin D3) ezetimibe 10 mg tablet 10 mg PO DAILY 09/23/21 12/11/23 levothyroxine 88 mcg tablet 88 mcg PO DAILY 09/23/21 12/11/23 (Synthroid) Lactobacillus rhamnosus GG 10 1 cap PO DAILY 12/11/23 12/11/23 billion cell-inulin 200 mg capsule ([employer]) psyllium husk 0.4 gram capsule 0.4 g PO DAILY 12/11/23 12/11/23 (Metamucil) chlorthalidone 25 mg tablet 25 mg PO 12/13/23 Allergies Allergy/AdvReac Type Severity Reaction Status Date / Time corn AdvReac Intermediate Gastrointestinal Verified 12/13/23 11:03 Upset egg AdvReac Intermediate Gastrointestinal Verified 12/13/23 11:03 Upset wheat AdvReac Intermediate Gastrointestinal Verified 12/13/23 11:03 Upset Review of Systems Review of Systems: All systems reviewed & are unremarkable except as noted in HPI and below Constitutional: Constitutional: Denies chills, Denies fatigue and Reports fever(s) ENT: Reports system reviewed and no additional complaints, except as documented Cardiovascular: Cardiovascular: Reports no additional cardiovascular complaints Respiratory: Respiratory: Reports no additional respiratory complaints Gastrointestinal: Gastrointestinal: Reports abdominal pain, Denies diarrhea, Denies nausea and Denies vomiting Musculoskeletal: Musculoskeletal: Reports no additional musculoskeletal complaints [facility] Past Medical History Medical History (Updated 12/14/23 @ 13:05 by Jerry Pearson MD) Abdominal pain Abnormal Pap smear of cervix Arthritis Colon cancer screening Elevated liver enzymes Essential hypertension Gallbladder disorder GERD (gastroesophageal reflux disease) History of deep venous thrombosis or pulmonary embolus Hyperlipidemia Migraine Renal cyst Right sided abdominal pain Thyroid disease Trigger thumb, right thumb Surgical History Surgical History H/O colposcopy with cervical biopsy H/O vein stripping History of appendectomy 1973 History of cholecystectomy 2008 History of endometrial ablation Family History Family History Mother DVT (deep venous thrombosis) Thyroid disease Renal disease Hypertension Other Carcinoma of colon Kidney malignant neoplasm Social History Social History Smoking status: Never smoker Second hand tobacco smoke exposure: No Alcohol intake: current Drinks per week: 2 Alcohol use details: soically Substance use: never Substance use type: does not use Do You Feel Safe in your Home?: Yes Lack of Transportation: No Lack of Food: Never True Current Housing: Decline to Answer Concerned About Future Housing: Decline to Answer Difficulty Paying Gas/Electric Bills: Decline to Answer Difficulty Paying for Meds: Decline to Answer Currently Unemployed: Decline to Answer Education: Decline to Answer Difficulty w/ Childcare or Family Care: Decline to Answer Living arrangements: with family 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
[2023-12-14 13:00] VITALS: BP 126/76; PULSE 76; RESP 16; TEMP 36.7; O2SAT 100
== END 2023-12-14 13:17 | disposition home or self-care (01) ==
PROVIDERS: Emergency Provider Emergency Medicine; PCP Registered Nurse
DX: K52.9 Noninfective gastroenteritis and colitis, unspecified (principal); I10 Essential (primary) hypertension; E78.5 Hyperlipidemia, unspecified; E07.9 Disorder of thyroid, unspecified; M19.90 Unspecified osteoarthritis, unspecified site; K21.9 Gastro-esophageal reflux disease without esophagitis; Z86.718 Personal history of other venous thrombosis and embolism; Z90.49 Acquired absence of other specified parts of digestive tract
CPT/HCPCS: 36415; 74177; 80053; 81001; 83605; 83690; 85025; 96361; 96374; 99284; J2270; J7030; Q9967

== ENCOUNTER 2024-01-30 14:42 | Outpatient (CLI) | payer OTHER, SELFPAY ==
--- NOTE | ~2024-01-30 | MR_ITS ---
EXAMINATION: MR abdomen wo/w con, MR pelvis wo/w con DATE: 01/30/2024 16:12 INDICATION: Chronic abdominal and pelvic pain TECHNIQUE: 1. Magnetic resonance imaging (MRI) of the abdomen was performed without and with 14 mL Multihance in travenous contrast. Sequences included coronal T2-weighted SS-FSE, coronal and axial FS 2D-FIESTA, a xial STIR FSE, axial T2-weighted SS-FSE, axial T2-weighted FS SS-FSE, axial diffusion-weighted SE, ax ial dual-echo T1-weighted FSPGR, and axial and coronal T1-weighted LAVA. Postcontrast axial and coron al T1-weighted LAVA images were obtained. 2. MRI of the pelvis was performed without and with 14 mL MultiHance intravenous contrast utilizing t he same contrast bolus. Full-field sequences of the pelvis included axial and coronal T2-weighted SS FSE, coronal 2D FIESTA, axial T1-weighted FSPGR, axial dual-echo T1-weighted FSPGR and axial T1 weigh lamar LAVA. Small field of view sequences included axial, sagittal and coronal T2-weighted FSE centere d on the uterus and adnexa. Postcontrast sequences included a time course axial T1-weighted LAVA wit h full-field of view of the pelvis. COMPARISON: CT abdomen and pelvis dated 12/14/2023 FINDINGS: Abdomen: Mild dependent atelectasis in the bilateral lower lobes. Heart size is normal. No pericardial or pleu ral effusion. There is mild intrahepatic ductal dilation likely related to prior cholecystectomy with surgical clips the gallbladder fossa. The common bile duct is normal in caliber measuring [address] and tapering smoothly distally with no choledocholithiasis or other obstructing lesions. Spleen, pancreas, bilateral adrenal glands and kidneys are normal. The colonic wall thickening previously see n on CT and concerning for colitis appears to have resolved. Bowels are unremarkable with no dilation to suggest obstruction. Normal bone marrow signal throughout. Pelvis: There are few diverticula without adjacent from trace stranding along the sigmoid colon. Uterus is at rophic. Endometrial complex measures approximately 2 mm in thickness. There are relatively prominent bilateral parametrial vessels and mildly dilated left gonadal vein which can be seen in the setting o f pelvic vascular congestion syndrome. Bladder and bilateral ovaries are unremarkable. Minimal likely physiologic free fluid in the cul-de-sac. Severe spondylosis at L5-S1. IMPRESSION: 1. Interval resolution of prior colonic thickening which likely related to colitis. No acute intra-ab dominal/pelvic process. 2. Mildly prominent bilateral parametrial vessels and left gonadal vein which can be seen in the sett ing of pelvic vascular congestion syndrome which is a clinical diagnosis. Reviewed, dictated and finalized at location A. IMPRESSION: 1. Interval resolution of prior colonic thickening which likely related to coli tis. No acute intra-abdominal/pelvic process. 2. Mildly prominent bilateral parametrial vessels and left gonadal vein which c an be seen in the setting of pelvic vascular congestion syndrome which is a cli nical diagnosis.
== END 2024-01-30 14:43 ==
LOC: MICIMG 14:43
PROVIDERS: PCP Family Medicine; Visit Provider Family Medicine
DX: R10.2 Pelvic and perineal pain (principal)
CPT/HCPCS: 72197; 74183; A9577

== ENCOUNTER 2024-11-05 14:06 | Outpatient (CLI) | payer OTHER, SELFPAY ==
--- NOTE | ~2024-11-05 | MM_ITS ---
EXAMINATION: MM screening [facility] BI w evie HISTORY: Screening TECHNIQUE: Craniocaudal and mediolateral oblique 3-D tomosynthesis images were obtained and synthetic 2-D images were generated. CAD analysis was submitted and interpreted. COMPARISON: 07/23/2023 and dating back to 11/11/2018 BREAST PARENCHYMAL COMPOSITION: There are scattered areas of fibroglandular density. FINDINGS: Stable parenchymal pattern without suspicious microcalcifications, architectural distortion, discrete masses or significant asymmetry. IMPRESSION: 1. No mammographic evidence of malignancy. 2. Recommend routine screening mammography in one year. BI-RADS Category 1: Negative Reviewed, dictated and finalized at location A.
== END 2024-11-05 14:07 | disposition home or self-care (01) ==
LOC: MICIMG 14:07
PROVIDERS: PCP Internal Medicine; Visit Provider Internal Medicine
DX: Z12.31 Encounter for screening mammogram for malignant neoplasm of breast (principal)
CPT/HCPCS: 77063; 77067